=== PATIENT | male | born 1950 | race Caucasian/White ===

== ENCOUNTER → 2020-11-04 | Outpatient (CLI) | payer MEDICARE ==
[~2020-11-04] MED LIST: ASPI81TA45 PO; CARV-39 PO; COLE625T12 PO; LOSA100T14 PO; Thyroxine PO
== END | disposition home or self-care (01) ==
LOC: STAR 13:14
PROVIDERS: ATTEND Orthopaedic Surgery
DX: Z01.812 Encounter for preprocedural laboratory examination (principal); Z20.822 Contact with and (suspected) exposure to COVID-19; M25.552 Pain in left hip
CPT/HCPCS: 36415; 87635

== ENCOUNTER 2020-11-08 05:24 | Day surgery (SDC) | payer MEDICARE ==
[~2020-11-08] VITALS: Ht 175.3 cm; Wt 100.5 kg
[2020-11-08 06:08] VITALS: BP 155/94
== END 2020-11-08 13:35 | disposition home or self-care (01) ==
LOC: OUT 05:24 → MERGE 07:30 → OUT 13:35
PROVIDERS: ATTEND Orthopaedic Surgery
DX: M16.12 Unilateral primary osteoarthritis, left hip (principal); I11.0 Hypertensive heart disease with heart failure; I50.9 Heart failure, unspecified; E03.9 Hypothyroidism, unspecified; Z79.890 Hormone replacement therapy; Z79.899 Other long term (current) drug therapy; Z88.0 Allergy status to penicillin; Z96.652 Presence of left artificial knee joint
CPT/HCPCS: 27130; 36415; 73502; 86850; 86900; 97163; C1713; C1776; J0330; J0690; J1100; J1170; J1885; J2274; J2405; J2704; J2710; J2795; J3010; J3370; J7050; J7120